=== PATIENT | male | born 1970 | race Caucasian/White ===

== ENCOUNTER 2023-10-25 16:12 | Emergency (ER) | payer OTHER, SELFPAY ==
[2023-10-25] VITALS (9 sets, daily range): BP systolic 142; BP diastolic 83; PULSE 100–122; RESP 18–32; TEMP 36.2; O2SAT 88–98
--- NOTE | ~2023-10-25 | XR_ITS ---
XR chest 1V portable 10/25/2023 16:44 Indication: Shortness of breath. Low oxygen saturations. Procedure: AP view of the chest Comparison: No prior studies for comparison. Findings: Heart size normal. The lungs are hyperinflated which is consistent with, but not diagnostic of chronic obstructive pulmonary disease. No focal pneumonia, edema or effusion. There is calcified granuloma left mid thorax. There is left basilar atelectasis/scarring. Impression: 1: No acute cardiopulmonary disease. Reviewed, dictated and finalized at location B. Impression: 1: No acute cardiopulmonary disease.
--- NOTE | 2023-10-25 16:25 | ECG_ITS ---
Test Date: 2023-10-25 16:35:56 Measurements Intervals [place] Rate: 116 P: 86 WI: 178 QRS: 196 QRSD: 96 T: 64 QT: 335 QTc: 466 Interpretive Statements SINUS TACHYCARDIA RIGHT AXIS DEVIATION INCOMPLETE RIGHT BUNDLE BRANCH BLOCK POOR R WAVE PROGRESSION BASELINE ARTIFACT- I, II, III, AVR, AVL, AVF, V1-V2, V4-V6 ABNORMAL ECG No previous ECG available for comparison Electronically Signed On 10-25-2023 18:28:08 CDT by Amol Healy D.O.
--- NOTE | 2023-10-25 16:33 | ED.SOB ---
HPI - SOB/Dyspnea General Chief Complaint: Shortness of Breath/Dyspnea Stated Complaint: sob, out of inhaler Time Seen by Provider: 10/25/23 16:25 History of Present Illness HPI Narrative: 52-year-old male history of COPD and asthma presents to the emergency room for evaluation of sudden onset of shortness of breath. With history of COPD asthma presents to the emergency room for sudden onset of some shortness of breath. Patient states that he is out of his albuterol nebulizer and IV to oral inhaler medications. States his last use was yesterday. Reports gradual onset of chest tightness shortness of breath. Patient is able to carry on a conversation and Be active without increased shortness of breath. Related Data Allergies Allergy/AdvReac Type Severity Reaction Status Date / Time No Known Allergies Allergy Verified 10/25/23 17:01 Review of Systems Review of Systems: ROS unremarkable except for noted in HPI Exam Narrative: GENERAL: Well-appearing, well-nourished, no physical limitations, and in no acute distress. HEAD: Normocephalic, atraumatic. EYES: Conjunctivae normal, PERRLA and EOMI. ENT: External nose normal, Nares clear, no rhinorrhea or epistaxis. Mucous membranes moist. Oropharynx without tonsillar hypertrophy exudate or other lesions. External ears normal, bilateral TMs normal bilaterally NECK: Supple. No meningeal signs. No adenopathy or masses. No carotid bruits or JVD CHEST: decreased breath sounds throughout, tachypneic HEART: tachycardia with regular rhythm. No murmur heard. Normal peripheral pulses. BACK: No CVA tenderness; No cervical/thoracic/lumbar tenderness, step-offs, bony abnormality; FROM EXTREMITIES: Normal range of motion. No edema. No clubbing or cyanosis SKIN: Warm, dry, no rash. No noted wounds NEURO: No focal deficits. Alert and oriented x3. MAEW. CN's II-XI intact bilaterally, normal gait PSYCH: Cooperative. Normal mood and affect. Course Vital Signs Vital signs: Vital Signs Temperature 36.2 C L 10/25/23 16:14 Pulse Rate 117 H 10/25/23 16:14 Respiratory Rate 24 H 10/25/23 16:14 Blood Pressure 142/83 H 10/25/23 16:14 Pulse Oximetry 94 10/25/23 16:14 Oxygen Delivery Room Air 10/25/23 16:14 Temperature 36.2 C L 10/25/23 16:14 Pulse Rate 114 H 10/25/23 16:58 Respiratory Rate 24 H 10/25/23 16:58 Blood Pressure 142/83 H 10/25/23 16:14 Pulse Oximetry 88 L 10/25/23 16:39 Oxygen Delivery Room Air 10/25/23 16:39 MDM - SOB/Dyspnea Lab Data 10/25/23 17:08 10/25/23 17:08 Labs: Lab Results 10/25/23 Range/Units 17:08 WBC 8.2 (4.5-10.0) K/mm3 RBC 5.37 (4.6-6.20) M/mm3 Hgb 16.1 (14.0-18.0) g/dL Hct 49.1 (42.0-52.0) % MCV 91.4 (80-100) fl MCH 30.0 (26-34) pg MCHC 32.8 (32-36) g/dl RDW 12.5 (11.5-14.5) % Plt Count 337 (150-375) k/mm3 MPV 9.8 (7.4-10.4) fl Immature Gran % (Auto) 0.7 H (0-0.5) % Neut % (Auto) 59.6 (45.5-73.1) % Lymph % (Auto) 25.9 (18.3-44.2) % Stevens % (Auto) 10.5 H (2.6-8.5) % Eos % (Auto) 2.6 (0-4.4) % Baso % (Auto) 0.7 (0.2-1.2) % Lymph # (Auto) 2.13 (0.9-3.2) K/mm3 Stevens # (Auto) 0.9 H (0.1-0.6) K/mm3 Eos # (Auto) 0.2 (0-0.3) K/mm3 Baso # (Auto) 0.1 (0.0-0.1) K/mm3 Abs Immat Gran (auto) 0.06 H (0.00-0.031) K/mm3 Absolute Neuts (auto) 4.9 (1.3-6.7) K/mm3 Absolute Nucleated RBC 0.000 (0.0-0.012) K/mm3 Nucleated RBC % 0.0 (0.0-0.2) % Sodium 137 (137-145) mmol/L Potassium 4.8 (3.4-5.0) mmol/L Chloride 94 L (98-107) mmol/L Carbon Dioxide 34 H (22-30) mmol/L Anion Gap 9 (4-12) mmol/L BUN 19 (9-20) mg/dL Creatinine 0.90 (0.7-1.3) mg/dL Estim Creat Clear Calc 113 ml/min Estimated GFR > 60 (59 - ) Glucose 255 H (65-110) mg/dL Calcium 9.2 (8.4-10.2) mg/dL Total Bilirubin 0.4 (0.2-1.3) mg/dL AST 27 (17-59) U/L ALT 25 (6-50) U/L Alkaline Phosphatase 126 (38-126) U/L Total Pr
[2023-10-25] MEDS: IPRATROPIUM 0.5 MG/ALBUTEROL SULFATE 2.5 MG AMPUL.NEB 3 ML INHALATION (16:44)
[2023-10-25] MEDS: dexAMETHasone SOD PHOS INJ 10 MG/ML 1 ML VIAL (17:01)
[2023-10-25 17:17] LABS: Basophils Absolute Auto 0.1 K/mm3 (0.0-0.1); Basophils Percent Auto 0.7 % (0.2-1.2); Eosinophils Absolute Auto 0.2 K/mm3 (0-0.3); Eosinophils Percent Auto 2.6 % (0-4.4); Hematocrit 49.1 % (42.0-52.0); Hemoglobin 16.1 g/dL (14.0-18.0); Immature Granulocyte Absolute 0.06 K/mm3 (0.00-0.031); Immature Granulocyte Percent A 0.7 % (0-0.5); Lymphocytes Absolute Auto 2.13 K/mm3 (0.9-3.2); Lymphocytes Percent Auto 25.9 % (18.3-44.2); Mean Corpuscular HGB Conc 32.8 g/dl (32-36); Mean Corpuscular Volume 91.4 fl (80-100); Mean Platelet Volume 9.8 fl (7.4-10.4); Monocytes Absolute Auto 0.9 K/mm3 (0.1-0.6); Monocytes Percent Auto 10.5 % (2.6-8.5); Neutrophils Absolute Auto 4.9 K/mm3 (1.3-6.7); Neutrophils Percent Auto 59.6 % (45.5-73.1); Platelet Count Result 337 k/mm3 (150-375); Red Blood Count 5.37 M/mm3 (4.6-6.20); Red Cell Distribution Width 12.5 % (11.5-14.5); White Blood Count 8.2 K/mm3 (4.5-10.0)
[2023-10-25 17:37] LABS: Alanine Aminotransferase 25 U/L (6-50); Alkaline Phosphatase 126 U/L (38-126); Anion Gap 9 mmol/L (4-12); Aspartate Amino Transferase 27 U/L (17-59); Bilirubin,Total 0.4 mg/dL (0.2-1.3); Blood Urea Nitrogen 19 mg/dL (9-20); Calcium 9.2 mg/dL (8.4-10.2); Carbon Dioxide 34 mmol/L (22-30); Chloride 94 mmol/L (98-107); Estimated CRCL calculation 113 ml/min; Estimated Glomerular Filt Rate > 60; Glucose 255 mg/dL (65-110); Potassium 4.8 mmol/L (3.4-5.0); Sodium 137 mmol/L (137-145)
== END 2023-10-25 17:43 | disposition home or self-care (01) ==
PROVIDERS: Emergency Medicine; Emergency Provider Nurse Practitioner Family
DX: J45.901 Unspecified asthma with (acute) exacerbation (principal); J44.89 Other specified chronic obstructive pulmonary disease; R00.0 Tachycardia, unspecified; I45.10 Unspecified right bundle-branch block
CPT/HCPCS: 36415; 71045; 80053; 85025; 93005; 94640; 96372; 99284; J1100

== ENCOUNTER 2023-11-07 15:49 | Inpatient (IN) | payer OTHER, SELFPAY ==
[2023-11-07] VITALS (17 sets, daily range): BP systolic 129–161; BP diastolic 70–100; PULSE 99–118; RESP 13–33; TEMP 36.1–36.9; O2SAT 94–100; BMI 39.0
--- NOTE | ~2023-11-07 | CT_ITS ---
EXAMINATION: CT diagnostic chest wo con DATE: 11/09/2023 17:57 INDICATION: COPD, lung nodule TECHNIQUE: Computed tomography (CT) of the chest was performed with 100 mL Omnipaque-350 intravenous contrast. Automated exposure control and iterative reconstruction technique were employed. The dose-l ength product was 733.65 mGy-cm. COMPARISON: X-ray chest 11/07/2023. FINDINGS: CHEST: Thoracic aorta: No significant dilation or calcification. Lung parenchyma and airways: Very mild scattered patchy groundglass opacities. Lingular scar. Calcifi ed left lower lobe granuloma. Thoracic inlet, axillae and chest wall: No thyroid or soft tissue mass. No axillary lymphadenopathy. Mediastinum: No mass or lymphadenopathy. Heart and pericardium: Normal heart size. No pericardial effusion. Coronary artery calcifications: Absent. Pleura: No effusion or mass. Upper abdomen: Left adrenal adenoma. Thoracic bones: No acute osseous finding in the chest. IMPRESSION: Very mild pattern of mosaic attenuation which can be seen with asthma, bronchitis obliterans, hyperse nsitivity pneumonitis, and chronic thromboembolic disease. Reviewed, dictated and finalized at location K. IMPRESSION: Very mild pattern of mosaic attenuation which can be seen with asthma, bronchit is obliterans, hypersensitivity pneumonitis, and chronic thromboembolic disease .
--- NOTE | ~2023-11-07 | XR_ITS ---
XR chest 1V portable 11/07/2023 16:51 Indication: Shortness of breath Procedure: AP portable chest Comparison: 10/25/2023 Findings: Heart size normal. Right lung clear. Calcified granuloma left mid thorax. No focal air spac e disease, pulmonary edema, pleural effusion or suspected pneumothorax. Impression: 1: No acute cardiopulmonary disease. Reviewed, dictated and finalized at location B. Impression: 1: No acute cardiopulmonary disease.
--- NOTE | 2023-11-07 15:57 | ECG_ITS ---
Test Date: 2023-11-07 16:05:23 Measurements Intervals [place] Rate: 116 P: 76 AL: 173 QRS: 144 QRSD: 98 T: 52 QT: 313 QTc: 435 Interpretive Statements SINUS TACHYCARDIA RIGHT AXIS DEVIATION INCOMPLETE RIGHT BUNDLE BRANCH BLOCK BORDERLINE R WAVE PROGRESSION, ANTERIOR LEADS BORDERLINE T WAVE ABNORMALITY- ANTERIOR LEADS BASELINE ARTIFACT- I, II, III, AVR, AVL, AVF, V2-V6 ABNORMAL ECG Compared to ECG 10/25/2023 16:35:56 NO SIGNIFICANT CHANGE Electronically Signed On 11-07-2023 16:56:23 CDT by Amol Healy D.O.
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
[2023-11-07] MEDS: ALBUTEROL SULFATE NEB 2.5 MG/3 ML INH 10 MG INHALATION ×2 (16:14→18:41)
[2023-11-07] MEDS: IPRATROPIUM BR 0.02% INH SOLN 0.5 MG/2.5 ML VIAL INHALATION ×2 (16:14→18:41)
[2023-11-07] MEDS: SODIUM CHLORIDE 0.9% IV 1,000 ML 999 ML IV CONT ×2 (16:15→18:34)
[2023-11-07] MEDS: methylPREDNISolone SOD SUCC 125 MG VIAL IV PUSH (16:15)
--- NOTE | 2023-11-07 16:18 | PC.NURSE ---
Pt tolerating resp treatment.
[2023-11-07 16:20] LABS: Basophils Absolute Auto 0.1 K/mm3 (0.0-0.1); Basophils Percent Auto 0.7 % (0.2-1.2); Eosinophils Absolute Auto 0.2 K/mm3 (0-0.3); Eosinophils Percent Auto 1.3 % (0-4.4); Hematocrit 50.1 % (42.0-52.0); Hemoglobin 15.1 g/dL (14.0-18.0); Immature Granulocyte Absolute 0.22 K/mm3 (0.00-0.031); Immature Granulocyte Percent A 1.7 % (0-0.5); Lymphocytes Absolute Auto 2.56 K/mm3 (0.9-3.2); Mean Corpuscular HGB Conc 30.1 g/dl (32-36); Mean Corpuscular Hemoglobin 28.8 pg (26-34); Mean Corpuscular Volume 95.6 fl (80-100); Mean Platelet Volume 9.4 fl (7.4-10.4); Monocytes Absolute Auto 1.1 K/mm3 (0.1-0.6); Monocytes Percent Auto 8.8 % (2.6-8.5); Neutrophils Absolute Auto 8.6 K/mm3 (1.3-6.7); Neutrophils Percent Auto 67.5 % (45.5-73.1); Platelet Count Result 240 k/mm3 (150-375); Red Blood Count 5.24 M/mm3 (4.6-6.20); Red Cell Distribution Width 12.8 % (11.5-14.5); White Blood Count 12.8 K/mm3 (4.5-10.0)
[2023-11-07 16:40] LABS: Alanine Aminotransferase 56 U/L (6-50); Albumin Level 4.4 g/dL (3.5-5.1); Alkaline Phosphatase 124 U/L (38-126); Aspartate Amino Transferase 46 U/L (17-59); Bilirubin,Total 0.4 mg/dL (0.2-1.3); Blood Urea Nitrogen 18 mg/dL (9-20); Calcium 8.7 mg/dL (8.4-10.2); Carbon Dioxide > 40 mmol/L (22-30); Chloride 91 mmol/L (98-107); Estimated CRCL calculation 126 ml/min; Estimated Glomerular Filt Rate > 60; Glucose 210 mg/dL (65-110); Potassium 5.3 mmol/L (3.4-5.0); Sodium 135 mmol/L (137-145)
[2023-11-07 17:11] LABS: Influenza A QL RT-PCR Negative (Negative); Influenza B QL RT-PCR Negative (Negative); RSV RNA, RT-PCR Negative (Negative); SARS-CoV-2 RNA PCR Negative (Negative)
[2023-11-07] MEDS: KETOROLAC 30 MG/ML VIAL (*BKC) IV PUSH (18:35)
--- NOTE | 2023-11-07 18:37 | PC.NURSE ---
Breath sounds unchanged. Pt medicated for headache
--- NOTE | 2023-11-07 18:42 | PC.NURSE ---
Pt found lying 1/2 off stretcher, oxygen off, Sa02 monitor off. Sa02 reapplied dropped 89% Pt repositioned wiht head of bed elevated. Instructed not to get up alone. Resp therapy notified of treatment & ABG.
[2023-11-07 18:49] LABS: Alveolar/Arterial O2 Gradient 30.6 mmHg; Base Excess ABG 1.6 mEq/l (+/-2.0); Fractional Inspired Oxygen 28 %; HCO3 ABG 32.4 mEq/l (22.0-26.0); Oxygen Content ABG 19.6 %vol (16.0-22.0); Oxygen Saturation ABG 89.9 % (95.0-100.0); Oxyhemoglobin 92.3 % THb (90.0-100.0); PO2 ABG 71.1 mmHg (80.0-100.0); PO2 FiO2 Ratio Arterial Blood 2.54 %; Total Hemoglobin 15.1 g/dL (12.0-18.0)
[2023-11-07 18:52] LABS: Device NASAL CANNULA; Modified Allen's Test Pass; Site Drawn RIGHT RADIAL; pH ABG 7.209 (7.350-7.450)
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
[2023-11-07 21:36] LABS: Glucose Point of Care 376 mg/dl (65-105)
[2023-11-07] MEDS: methylPREDNISolone SOD SUCC 125 MG VIAL 60 MG IV PUSH (21:43)
[2023-11-07] MEDS: INSULIN ASPART (*BKC) 100 UNITS/ML SUB-Q (21:43)
--- NOTE | 2023-11-07 21:51 | ADMGEN ---
This patient, Nohemy Lopez, was admitted to IMU Room 214-01. Patient/family oriented to hospital policies and general routines including ID bracelet, bed and alarms, visiting hours, pain management, procedures, bathroom and other care routines, personal items, smoking policy, room service/diet, and visiting hours. Information on how to activate the Rapid Response Team has been discussed. Patient/Family are encouraged to report perceived risks to care and to ask questions if they do not understand what they are told or what they should do.
[2023-11-07] MEDS: MIRTAZAPINE 15 MG TABLET PO (23:03)
[2023-11-07 23:47] LABS: Alveolar/Arterial O2 Gradient 56.9 mmHg; Base Excess ABG -2.6 mEq/l (+/-2.0); Fractional Inspired Oxygen 28 %; HCO3 ABG 25.7 mEq/l (22.0-26.0); Oxygen Content ABG 19.1 %vol (16.0-22.0); Oxyhemoglobin 93.7 % THb (90.0-100.0); PCO2 ABG 59.2 mmHg (35.0-45.0); PO2 ABG 72.9 mmHg (80.0-100.0); Total Hemoglobin 14.5 g/dL (12.0-18.0)
[2023-11-07 23:49] LABS: Device NON-INVASIVE VENT; Modified Allen's Test Pass; Site Drawn RIGHT RADIAL; pH ABG 7.255 (7.350-7.450)
[2023-11-07 23:50] LABS: Non-Invasive Expiratory Pressure 8 CMH2O; Non-Invasive Inspiratory Pressure 16 CMH2O; Non-Invasive Vent Rate 20 /MIN
[2023-11-08] VITALS (29 sets, daily range): BP systolic 110–142; BP diastolic 76–97; PULSE 96–122; RESP 12–28; TEMP 36.1–37.4; O2SAT 94–99
[2023-11-08] MEDS: ALBUTEROL SULFATE NEB 2.5 MG/3 ML INH 5 MG INHALATION ×4 (02:30→20:02)
[2023-11-08] MEDS: IPRATROPIUM BR 0.02% INH SOLN 0.5 MG/2.5 ML VIAL INHALATION ×4 (02:30→20:02)
[2023-11-08 05:00] LABS: Hematocrit 43.1 % (42.0-52.0); Hemoglobin 13.2 g/dL (14.0-18.0); Mean Corpuscular HGB Conc 30.6 g/dl (32-36); Mean Corpuscular Hemoglobin 29.1 pg (26-34); Mean Corpuscular Volume 94.9 fl (80-100); Mean Platelet Volume 9.5 fl (7.4-10.4); Platelet Count Result 194 k/mm3 (150-375); Red Blood Count 4.54 M/mm3 (4.6-6.20); Red Cell Distribution Width 12.8 % (11.5-14.5); White Blood Count 15.4 K/mm3 (4.5-10.0)
[2023-11-08 05:11] LABS: Anion Gap 8 mmol/L (4-12); Blood Urea Nitrogen 18 mg/dL (9-20); Calcium 7.9 mg/dL (8.4-10.2); Carbon Dioxide 33 mmol/L (22-30); Chloride 92 mmol/L (98-107); Estimated CRCL calculation 148 ml/min; Estimated Glomerular Filt Rate > 60; Glucose 314 mg/dL (65-110); Sodium 133 mmol/L (137-145)
[2023-11-08 05:18] LABS: Hemoglobin A1C 8.3 % (<5.7)
[2023-11-08 06:13] LABS: Alveolar/Arterial O2 Gradient 51.6 mmHg; Base Excess ABG 0.8 mEq/l (+/-2.0); Device NON-INVASIVE VENT; Fractional Inspired Oxygen 28 %; HCO3 ABG 28.2 mEq/l (22.0-26.0); Modified Allen's Test Pass; Oxygen Content ABG 18.6 %vol (16.0-22.0); Oxygen Saturation ABG 94.7 % (95.0-100.0); Oxyhemoglobin 95.2 % THb (90.0-100.0); PCO2 ABG 57.2 mmHg (35.0-45.0); PO2 ABG 80.5 mmHg (80.0-100.0); PO2 FiO2 Ratio Arterial Blood 2.88 %; Site Drawn RIGHT RADIAL; Total Hemoglobin 13.9 g/dL (12.0-18.0); pH ABG 7.311 (7.350-7.450)
[2023-11-08 06:14] LABS: Non-Invasive Expiratory Pressure 8 CMH2O; Non-Invasive Inspiratory Pressure 16 CMH2O; Non-Invasive Vent Rate 20 /MIN
[2023-11-08 06:21] LABS: Glucose Point of Care 314 mg/dl (65-105)
[2023-11-08] MEDS: methylPREDNISolone SOD SUCC 125 MG VIAL 60 MG IV PUSH ×3 (06:25→21:26)
[2023-11-08] MEDS: UMECLIDINIUM/VILANTEROL 62.5-25 MCG ELLIPTA 1 PUFF INHALATION (07:00)
[2023-11-08] MEDS: EMPAGLIFLOZIN 10 MG TABLET PO (08:41)
[2023-11-08] MEDS: metFORMIN HCL 500 MG TABLET PO ×2 (08:41→17:15)
[2023-11-08] MEDS: ENOXAPARIN 40 MG/0.4 ML SYRINGE SUB-Q (08:42)
[2023-11-08] MEDS: ACETAMINOPHEN 325 MG TABLET 650 MG PO (08:47)
[2023-11-08] MEDS: INSULIN ASPART (*BKC) 100 UNITS/ML SUB-Q ×4 (08:48→20:03)
[2023-11-08 08:51] LABS: Glucose Point of Care 302 mg/dl (65-105)
[2023-11-08 13:13] LABS: Glucose Point of Care 251 mg/dl (65-105)
[2023-11-08] MEDS: BISACODYL 5 MG TABLET EC PO (13:13)
--- NOTE | 2023-11-08 14:17 | PCRCNOTE ---
CARE COORD. CALLED IN REGARDS TO GETTING PT SET UP WITH BIPAP AT D/C. BASED ON DX AND ABGs, IT APPEARS WARRANTED, PT WILL NEED A APNEA LINK TONIGHT DONE ON 2L [place] WELL DOCUMENTATION STATING CPAP TRIED/FAILED/RULED OUT. SPOKE TO HOSPITALIST, AGREED TO ORDER AND COMPLETE THE APNEA LINK ON 2L, UNSURE IS HE COULD STATE PT HAS FAILED CPAP. REACHED OUT TO PT PCP, JORGE WRIGHT ASKING IF THEY HAD ANY INFO ON PT PAST CRF AND IF HE HAS ANY RESP. EQUIPMENT FROM DME CURRENTLY AT HOME THAT INSURANCE MAY BE PAYING FOR. WILL AWAIT APNEA LINK RESULTS AND POSSIBLE ESTABLISHED DME VIA [facility] OFFICE.
[2023-11-08 16:16] LABS: Glucose Point of Care 223 mg/dl (65-105)
--- NOTE | 2023-11-08 17:17 | PM.IMPN ---
Progress Note: A&P Assessment and Plan (1) Acute on chronic respiratory failure with hypoxia and hypercapnia: Code(s): J96.21 - Acute and chronic respiratory failure with hypoxia; J96.22 - Acute and chronic respiratory failure with hypercapnia Status: Acute (2) Anxiety: Code(s): F41.9 - Anxiety disorder, unspecified Status: Acute (3) Methamphetamine abuse: Code(s): F15.10 - Other stimulant abuse, uncomplicated Status: Acute (4) Type 2 diabetes mellitus with hyperglycemia, without long-term current use of insulin: Code(s): E11.65 - Type 2 diabetes mellitus with hyperglycemia Status: Acute (5) Hyperkalemia: Code(s): E87.5 - Hyperkalemia Status: Acute (6) COPD exacerbation: Code(s): J44.1 - Chronic obstructive pulmonary disease with (acute) exacerbation Status: Acute (7) Obstructive sleep apnea: Code(s): G47.33 - Obstructive sleep apnea (adult) (pediatric) Status: Acute Plan H&P via Nicole Alonso MD on 11/07/23 53-year-old homeless male with past medical history of methamphetamine abuse, obstructive sleep apnea, COPD and type 2 diabetes mellitus who presented to the ER from [place] due to shortness of breath that is unrelieved with inhalers and nebulizers. The patient reports that he has had chest not undergoing treatment for opiate abuse. He has had increasing shortness of breath and his oxygen saturations on arrival to the ER were 63% on room air. He denies any significant cough or congestion. He has not had any fevers or chills. He was having a severe headache which she reports usually occurs whenever his pCO2 becomes elevated. He admits that he has not been using his BiPAP. He denies any chest pain or palpitations. He has not had any recent ill contacts. He denies orthopnea or paroxysmal nocturnal dyspnea. His only complaint at the time of my evaluation is that he is hungry. When I arrived to the patient's bedside he was wearing the BiPAP but the BiPAP mask was work completely loose. The patient admits to having unhook the mask and the straps were twisted. Which he had a large leak of greater than 100. I did adjust the patient's BiPAP mask with improved leak down to the 20s and 30s. The patient was noted to be hyperglycemic in the ER but patient did not know his home medications were ventral able to get his home medications from the drug rehab facility staff to after multiple attempts. Patient does not usually check his blood sugars. He reports that he has been in drug rehab due to methamphetamine use. He has been in inpatient rehab since the 17 of October. He reports that his program is 28 days long. ---- Continue nebulizer treatments, Solu-Medrol. Continue to trend white count and check procalcitonin in the morning. Tonight will do ApneaLink on 2 L to attempt to try to get a BiPAP delivered to the patient prior to discharge. He does not tolerate being off BiPAP then it should be placed. ABG in the morning. Metformin and Jardiance have been continued. She elicit he is being held. Continue Accu-Cheks. HbA1c on admission 8.3% His ABG on presentation demonstrates respiratory acidosis with severe hypercapnia which is been partially chronically compensated by metabolic alkalosis. His hypercapnia has improved greatly with BiPAP 18/6. Do not think the patient should return to [place] without a noninvasive ventilator. He has umeclidium vilatnerol TAILMAN and a rescue inhaler. will add pulmicort on discharge. Full code. Lovenox. Subjective Date/time seen: 11/08/23 17:17 Interval history: No major acute overnight events. The patient believes his breathing has improved. He is anxious about getting back to chest not appear he reports he does not in fact have a noninvasive ventilator at home or in his possession at all he is also technically homeless and they are arranging housing for him [facility]. He has a
[2023-11-08 19:52] LABS: Glucose Point of Care 354 mg/dl (65-105)
[2023-11-08] MEDS: MIRTAZAPINE 15 MG TABLET PO (20:02)
[2023-11-08] MEDS: INSULIN GLARGINE (*BKC) 100 UNITS/ML 10 UNITS SUB-Q (20:03)
[2023-11-08] MEDS: polyethylene glycoL 3350 17 GM POWD.PACK PO (21:26)
[2023-11-09] VITALS (21 sets, daily range): BP systolic 118–148; BP diastolic 67–94; PULSE 86–118; RESP 16–24; TEMP 36.1–36.7; O2SAT 92–100
[2023-11-09 04:50] LABS: Basophils Percent Auto 0.2 % (0.2-1.2); Hematocrit 44.4 % (42.0-52.0); Hemoglobin 13.4 g/dL (14.0-18.0); Immature Granulocyte Absolute 0.25 K/mm3 (0.00-0.031); Immature Granulocyte Percent A 1.1 % (0-0.5); Lymphocytes Absolute Auto 1.27 K/mm3 (0.9-3.2); Lymphocytes Percent Auto 5.6 % (18.3-44.2); Mean Corpuscular HGB Conc 30.2 g/dl (32-36); Mean Corpuscular Hemoglobin 28.5 pg (26-34); Mean Corpuscular Volume 94.5 fl (80-100); Mean Platelet Volume 9.6 fl (7.4-10.4); Monocytes Percent Auto 4.6 % (2.6-8.5); Neutrophils Percent Auto 88.5 % (45.5-73.1); Platelet Count Result 212 k/mm3 (150-375); White Blood Count 22.6 K/mm3 (4.5-10.0)
[2023-11-09 05:04] LABS: Anion Gap 7 mmol/L (4-12); Blood Urea Nitrogen 26 mg/dL (9-20); Calcium 8.3 mg/dL (8.4-10.2); Carbon Dioxide 31 mmol/L (22-30); Chloride 96 mmol/L (98-107); Estimated CRCL calculation 166 ml/min; Estimated Glomerular Filt Rate > 60; Glucose 211 mg/dL (65-110); Magnesium 2.5 mg/dL (1.6-2.3); Potassium 4.5 mmol/L (3.4-5.0); Sodium 134 mmol/L (137-145)
[2023-11-09 05:32] LABS: Alveolar/Arterial O2 Gradient 52.5 mmHg; Base Excess ABG 6.2 mEq/l (+/-2.0); Carboxyhemoglobin 0.6 % THb (0-2.0); Fractional Inspired Oxygen 28 %; HCO3 ABG 33.3 mEq/l (22.0-26.0); Methemoglobin ABG 0.1 %THb (0-1.5); Oxygen Content ABG 18.6 %vol (16.0-22.0); Oxygen Saturation ABG 94.8 % (95.0-100.0); Oxyhemoglobin 95.1 % THb (90.0-100.0); PO2 ABG 77.5 mmHg (80.0-100.0); PO2 FiO2 Ratio Arterial Blood 2.77 %; Reduced Hemoglobin 4.2 %THb (0-5.0); Total Hemoglobin 13.9 g/dL (12.0-18.0)
[2023-11-09] MEDS: methylPREDNISolone SOD SUCC 125 MG VIAL 60 MG IV PUSH ×2 (05:32→13:25)
[2023-11-09 05:33] LABS: Device NASAL CANNULA; Modified Allen's Test Pass; Site Drawn RIGHT RADIAL
[2023-11-09 07:11] LABS: Glucose Point of Care 296 mg/dl (65-105)
[2023-11-09] MEDS: IPRATROPIUM BR 0.02% INH SOLN 0.5 MG/2.5 ML VIAL INHALATION ×2 (07:34→13:44)
[2023-11-09] MEDS: ALBUTEROL SULFATE NEB 2.5 MG/3 ML INH 5 MG INHALATION ×2 (07:34→13:44)
[2023-11-09] MEDS: ENOXAPARIN 40 MG/0.4 ML SYRINGE SUB-Q (08:50)
[2023-11-09] MEDS: INSULIN ASPART (*BKC) 100 UNITS/ML SUB-Q ×4 (08:50→20:12)
[2023-11-09] MEDS: metFORMIN HCL 500 MG TABLET PO ×2 (08:50→16:43)
[2023-11-09] MEDS: EMPAGLIFLOZIN 10 MG TABLET PO (08:50)
[2023-11-09 11:23] LABS: Glucose Point of Care 302 mg/dl (65-105)
[2023-11-09] MEDS: UMECLIDINIUM/VILANTEROL 62.5-25 MCG ELLIPTA 1 PUFF INHALATION (13:44)
[2023-11-09 16:27] LABS: Glucose Point of Care 294 mg/dl (65-105)
--- NOTE | 2023-11-09 16:51 | PM.CNPUL ---
Assessment and Plan Assessment and plan (1) COPD exacerbation: Code(s): J44.1 - Chronic obstructive pulmonary disease with (acute) exacerbation Status: Acute Assessment and Plan: patient with a 60 pack year tobacco use, quit in 2017, history of COPD diagnosed in 2017 with PFTs and required 2 L supplemental oxygen at that time. Patient has had 2 previous episodes of hypercarbic respiratory failure 1 in [place] and 1 in [place] and in [place] he was discharged with a home noninvasive ventilator. Patient does not know his settings. Patient wore this until he moved to the [facility]. He does have respiratory limitations at baseline. Patient presented to [place] emergency room with feelings of hypercarbic respiratory failure and blood gas on 2 L nasal cannula pH of 7.21/83/71. Patient was placed on BiPAP rate of 20 pressure 16/8 and 2 L nasal cannula with repeat blood gas 5 hours later at 7.26/50 9/73. patient had a chest x-ray with no acute disease. Patient was treated for COPD exacerbation with IV steroids, bronchodilators and admitted to the hospital. patient's serum bicarbonate was greater than 40 on admission. ABG this morning at 5:23 a.m. on 2 L nasal cannula overnight was 7.37/59/78. The patient has chronic hypercarbic respiratory failure from COPD and would benefit from noninvasive ventilation to prevent further hospitalizations and deterioration. 11/09/2023: Currently the patient is on room air with saturations 100%. He is in no respiratory distress. He says he is 85% back to his normal. He has no wheezing. white blood cell count 22.6, creatinine 0.6, serum bicarbonate 31, procalcitonin 0, ABG this morning at 5:23 a.m. on 2 L nasal cannula overnight was 7.37/59/78. Patient had an overnight oximetry on 2 L nasal cannula with recording duration 6 hours and 35 minutes. Average saturation 94%. Low saturation 81%. Time with saturation less than or equal to 88% was 75 minutes. AHI was 2.4. Plan: Patient has no wheezing currently. I will change his IV Solu-Medrol to p.o. prednisone 40 mg a day 1st dose on 11/10/2023. Today is day 3 total of steroids. I will discontinue his standing nebulized albuterol and ipratropium and continue him on inhaled Anoro Ellipta 62.5-25 at 1 puff q.day. patient has no phlegm production is there is no evidence of a bacterial infection with a procalcitonin of 0. I agree with no antibiotics at this time. Goal saturation 90-94%. Currently on room air. He may require supplemental oxygen with activity. I will check an alpha 1 anti trypsin genotype. I will check a CT scan of the chest to assess for bullous emphysema and his history of lung nodule. Discussed with Dr. Davila and early childhood education coordinator. (2) Acute on chronic respiratory failure with hypoxia and hypercapnia: Code(s): J96.21 - Acute and chronic respiratory failure with hypoxia; J96.22 - Acute and chronic respiratory failure with hypercapnia Status: Acute Assessment and Plan: Patient has had 2 previous episodes of hypercarbic respiratory failure 1 in [place] in 2021 and 1 in [place] in 2022 and in [place] he was discharged with a home noninvasive ventilator. Patient does not know his settings. The patient has chronic hypercarbic respiratory failure from COPD and would benefit from noninvasive ventilation to prevent further hospitalizations and deterioration. 11/09/23: Plan: I will initiate noninvasive ventilatory support and place him on BiPAP rate of 20, pressure 16/5, inspiratory time 0.85, rise of 2 and 4 L bleed in and check an overnight oximetry and ABG prior to removal. Currently the patient's plan is to be discharged to an assisted living facility and we will contact them on 11/10/2023 to ensure they can support a noninvasive ventilator. History of Present Illness History of Present Illness Consult date: 11/09/23 Chief complaint: COPD Exacerbation Narrative:
--- NOTE | 2023-11-09 18:02 | PM.IMPN ---
Progress Note: A&P Assessment and Plan (1) Acute on chronic respiratory failure with hypoxia and hypercapnia: Code(s): J96.21 - Acute and chronic respiratory failure with hypoxia; J96.22 - Acute and chronic respiratory failure with hypercapnia Status: Acute (2) Anxiety: Code(s): F41.9 - Anxiety disorder, unspecified Status: Acute (3) Methamphetamine abuse: Code(s): F15.10 - Other stimulant abuse, uncomplicated Status: Acute (4) Type 2 diabetes mellitus with hyperglycemia, without long-term current use of insulin: Code(s): E11.65 - Type 2 diabetes mellitus with hyperglycemia Status: Acute (5) Hyperkalemia: Code(s): E87.5 - Hyperkalemia Status: Acute (6) COPD exacerbation: Code(s): J44.1 - Chronic obstructive pulmonary disease with (acute) exacerbation Status: Acute (7) Obstructive sleep apnea: Code(s): G47.33 - Obstructive sleep apnea (adult) (pediatric) Status: Acute Plan H&P via Nicole Alonso MD on 11/07/23 53-year-old homeless male with past medical history of methamphetamine abuse, obstructive sleep apnea, COPD and type 2 diabetes mellitus who presented to the ER from [place] due to shortness of breath that is unrelieved with inhalers and nebulizers. The patient reports that he has had chest not undergoing treatment for opiate abuse. He has had increasing shortness of breath and his oxygen saturations on arrival to the ER were 63% on room air. He denies any significant cough or congestion. He has not had any fevers or chills. He was having a severe headache which she reports usually occurs whenever his pCO2 becomes elevated. He admits that he has not been using his BiPAP. He denies any chest pain or palpitations. He has not had any recent ill contacts. He denies orthopnea or paroxysmal nocturnal dyspnea. His only complaint at the time of my evaluation is that he is hungry. When I arrived to the patient's bedside he was wearing the BiPAP but the BiPAP mask was work completely loose. The patient admits to having unhook the mask and the straps were twisted. Which he had a large leak of greater than 100. I did adjust the patient's BiPAP mask with improved leak down to the 20s and 30s. The patient was noted to be hyperglycemic in the ER but patient did not know his home medications were ventral able to get his home medications from the drug rehab facility staff to after multiple attempts. Patient does not usually check his blood sugars. He reports that he has been in drug rehab due to methamphetamine use. He has been in inpatient rehab since the 17 of October. He reports that his program is 28 days long. ---- Ap[facility] reviewed. Patient currently on room air at rest. Discussion held with family day care provider and manager of radiology. The patient cannot go back to chest not as they are refusing. He is otherwise homeless and they are working on housing. Consult pulmonology to help titrate and set up this patient has noninvasive ventilator along with other will therapies related to chronic hypercapnic hypoxic respiratory failure. Pulmonology consultation is greatly appreciated. Full code. Lovenox. Full code. Lovenox. Subjective Date/time seen: 11/09/23 18:02 Interval history: No major acute overnight events. ApneaLink performed last night. Patient believes he is almost back to his baseline. Review of Systems Review of Systems: All systems reviewed & are unremarkable except as noted in HPI and below (Subjective) Exam Const: General: comfortable and no acute distress Eyes: Pupils: Equal, round and reactive pupils present Neck: Neck: supple Resp: Effort & Inspection: normal respiratory effort Other: Severely diminished lung sounds. No wheeze. Cardio: Rate: regular rate Rhythm: regular rhythm GI: GI Palp: Yes Soft to palpation and No Tenderness to palpation present (GI) Extrem: General: edema (Trace pitting
[2023-11-09] MEDS: hydrOXYzine pamoate 25 MG CAPSULE 50 MG PO (20:04)
[2023-11-09] MEDS: MIRTAZAPINE 15 MG TABLET PO (20:05)
[2023-11-09] MEDS: INSULIN GLARGINE (*BKC) 100 UNITS/ML 10 UNITS SUB-Q (20:11)
[2023-11-09 20:24] LABS: Glucose Point of Care 236 mg/dl (65-105)
--- NOTE | 2023-11-09 23:21 | PC.NURSE ---
Patient being transferred to [facility] via wheelchair in stable condition. RT notified for Apnea link. Report given to Kadie HADDAD. All belongings sent with patient.
[2023-11-10] VITALS (7 sets, daily range): BP systolic 132–141; BP diastolic 71–97; PULSE 70–102; RESP 16–30; TEMP 36.1–36.9; O2SAT 92–97
[2023-11-10 04:35] LABS: Alveolar/Arterial O2 Gradient 127.2 mmHg; Base Excess ABG 5.2 mEq/l (+/-2.0); Fractional Inspired Oxygen 36 %; HCO3 ABG 32.5 mEq/l (22.0-26.0); Oxygen Content ABG 18.5 %vol (16.0-22.0); Oxyhemoglobin 90.4 % THb (90.0-100.0); PCO2 ABG 58.9 mmHg (35.0-45.0); PO2 ABG 61.2 mmHg (80.0-100.0); Total Hemoglobin 14.6 g/dL (12.0-18.0); pH ABG 7.359 (7.350-7.450)
[2023-11-10 04:36] LABS: Device BIPAP; Modified Allen's Test Pass; Site Drawn RIGHT RADIAL
[2023-11-10 04:37] LABS: Inspiratory Pressure 16 cmH2O
[2023-11-10 04:39] LABS: Expiratory Pressure 5 cmH2O
[2023-11-10 07:06] LABS: Basophils Absolute Auto 0.1 K/mm3 (0.0-0.1); Basophils Percent Auto 0.3 % (0.2-1.2); Hemoglobin 14.4 g/dL (14.0-18.0); Immature Granulocyte Absolute 0.33 K/mm3 (0.00-0.031); Immature Granulocyte Percent A 1.4 % (0-0.5); Lymphocytes Absolute Auto 2.47 K/mm3 (0.9-3.2); Lymphocytes Percent Auto 10.7 % (18.3-44.2); Mean Corpuscular HGB Conc 30.6 g/dl (32-36); Mean Corpuscular Hemoglobin 28.5 pg (26-34); Mean Corpuscular Volume 93.1 fl (80-100); Mean Platelet Volume 9.4 fl (7.4-10.4); Monocytes Absolute Auto 1.7 K/mm3 (0.1-0.6); Monocytes Percent Auto 7.3 % (2.6-8.5); Neutrophils Absolute Auto 18.5 K/mm3 (1.3-6.7); Neutrophils Percent Auto 80.3 % (45.5-73.1); Platelet Count Result 280 k/mm3 (150-375); Red Blood Count 5.05 M/mm3 (4.6-6.20); Red Cell Distribution Width 13.5 % (11.5-14.5)
--- NOTE | 2023-11-10 07:07 | ECHO_ITS ---
Patient Info Name: Nohemy Lopez Age: 53 years : 1970 Gender: Male Ht: 71 in Wt: 280 lbs BSA: 2.57 m2 HR: 102 bpm BP: 141 / 71 mmHg Heart Rhythm: Sinus Rhythm Technical Quality: Good Exam Date: 11/10/2023 10:17 AM Exam Location: Echo Lab Patient Status: Inpatient Admit Date: 11/08/2023 Staff Ordering Physician: Bam Cazares MD [employer] Weaver: Comfort Palmer RDCS Attending Provider: Nicole Alonso DO Referring Physician: Sage BAY; Exam Type: CA echo doppler color flow Study Info Indications - wilson, assess vlaves, lv, rv, and pasp Complete two-dimensional, color flow and Doppler transthoracic echocardiogram is performed. Summary 1. Left ventricular chamber dimension is normal. 2. Left ventricular systolic function is normal, estimated at 60-65%. 3. The left ventricular diastolic function is grade I diastolic dysfunction. 4. Right ventricular chamber dimension is severely enlarged. 5. Right ventricular systolic function is normal. 6. Right atrial chamber dimension is mildly enlarged. 7. There is mild tricuspid valve regurgitation. 8. Estimated pulmonary arterial systolic pressure is 20 mmHg. Left Ventricle Left ventricular chamber dimension is normal. Left ventricular systolic function is normal, estimated at 60-65%. There is no increased left ventricular wall thickness. The left ventricular diastolic function is grade I diastolic dysfunction. Right Ventricle Right ventricular chamber dimension is severely enlarged. Right ventricular systolic function is normal. Left Atria Left atrial chamber dimension is normal. Right Atria Right atrial chamber dimension is mildly enlarged. Atrial Septum Intact interatrial septum visualized by color flow imaging. Aortic Valve The aortic valve is trileaflet. There is no aortic valve stenosis. There is no aortic valve regurgitation. Pulmonic Valve The pulmonic valve is not well visualized. Mitral Valve There is trace mitral valve regurgitation. Tricuspid Valve There is mild tricuspid valve regurgitation. Estimated pulmonary arterial systolic pressure is 20 mmHg. Pericardium/Pleural The pericardium appears epicardial fat pad. There is no pericardial effusion. Inferior Vena Cava Dilated inferior vena cava with >50% collapse upon inspiration consistent with elevated right atrial pressure, 8 mmHg. Aorta The aortic root size at the sinus of Valsalva is normal. Left Ventricular Outflow Tract Name Value Normal LVOT 2D LVOT Diameter 2.2 cm LVOT Doppler LVOT Peak Gradient 3 mmHg LVOT Mean Gradient 2 mmHg LVOT VTI 19 cm LVOT VTI/AV VTI Ratio 0.7 LVOT Stroke Volume 71 ml LVOT CO 6.0 l/min LVOT CI 2.3 l/min/m2 Pulmonic Valve Name Value Normal PV Doppler PV Pe
[2023-11-10 07:17] LABS: Anion Gap 8 mmol/L (4-12); Blood Urea Nitrogen 31 mg/dL (9-20); Calcium 8.6 mg/dL (8.4-10.2); Carbon Dioxide 34 mmol/L (22-30); Chloride 94 mmol/L (98-107); Estimated CRCL calculation 127 ml/min; Estimated Glomerular Filt Rate > 60; Glucose 222 mg/dL (65-110); Potassium 4.2 mmol/L (3.4-5.0); Sodium 136 mmol/L (137-145)
[2023-11-10] MEDS: metFORMIN HCL 500 MG TABLET PO ×2 (08:18→17:32)
[2023-11-10] MEDS: EMPAGLIFLOZIN 10 MG TABLET PO (08:19)
[2023-11-10] MEDS: ENOXAPARIN 40 MG/0.4 ML SYRINGE SUB-Q (08:19)
[2023-11-10] MEDS: predniSONE 20 MG TABLET 40 MG PO (08:19)
--- NOTE | 2023-11-10 08:24 | PM.PNPUL ---
Progress Note: A&P Assessment and Plan (1) COPD exacerbation: Code(s): J44.1 - Chronic obstructive pulmonary disease with (acute) exacerbation Status: Acute Assessment and Plan: patient with a 60 pack year tobacco use, quit in 2017, history of COPD diagnosed in 2017 with PFTs and required 2 L supplemental oxygen at that time. Patient has had 2 previous episodes of hypercarbic respiratory failure 1 in [place] and 1 in [place] and in [place] he was discharged with a home noninvasive ventilator. Patient does not know his settings. Patient wore this until he moved to the [facility]. He does have respiratory limitations at baseline. 11/07/23 admission White blood cell count was 12.8 with eosinophils 1.3% equal 166 per micro L, Patient presented to [place] emergency room with feelings of hypercarbic respiratory failure and blood gas on 2 L nasal cannula pH of 7.21/83/71. Patient was placed on BiPAP rate of 20 pressure 16/8 and 2 L nasal cannula with repeat blood gas 5 hours later at 7.26/50 9/73. patient had a chest x-ray with no acute disease. Patient was treated for COPD exacerbation with IV steroids, bronchodilators and admitted to the hospital. patient's serum bicarbonate was greater than 40 on admission. ABG this morning at 5:23 a.m. on 2 L nasal cannula overnight was 7.37/59/78. The patient has chronic hypercarbic respiratory failure from COPD and would benefit from noninvasive ventilation to prevent further hospitalizations and deterioration. 11/09/2023: Currently the patient is on room air with saturations 100%. He is in no respiratory distress. He says he is 85% back to his normal. He has no wheezing. white blood cell count 22.6, creatinine 0.6, serum bicarbonate 31, procalcitonin 0, ABG this morning at 5:23 a.m. on 2 L nasal cannula overnight was 7.37/59/78. Patient had an overnight oximetry on 2 L nasal cannula with recording duration 6 hours and 35 minutes. Average saturation 94%. Low saturation 81%. Time with saturation less than or equal to 88% was 75 minutes. AHI was 2.4. Plan: Patient has no wheezing currently. I will change his IV Solu-Medrol to p.o. prednisone 40 mg a day 1st dose on 11/10/2023. Today is day 3 total of steroids. I will discontinue his standing nebulized albuterol and ipratropium and continue him on inhaled Anoro Ellipta 62.5-25 at 1 puff q.day. patient has no phlegm production is there is no evidence of a bacterial infection with a procalcitonin of 0. I agree with no antibiotics at this time. Goal saturation 90-94%. Currently on room air. He may require supplemental oxygen with activity. I will check an alpha 1 anti trypsin genotype. I will check a CT scan of the chest to assess for bullous emphysema and his history of lung nodule. Discussed with Dr. Davila and technical project coordinator. Later in the day the patient had a CT scan of the chest demonstrating very minimal diffuse patchy infiltrates with no consolidation, no emphysema no interstitial lung disease. 11/10/23: Patient tells me he is 95% back to his baseline. He denies cough, phlegm or hemoptysis. He has no wheezing. He is afebrile. White blood cell count 23.0, creatinine 0.8. Patient is on room air with saturations 98%. Plan: Patient has no wheezing today. Continue prednisone 40 mg a day day 4 of steroids. Will discontinue after tomorrow's dose. Continue Anoro Ellipta 62.5-25 at 1 puff q.day. goal saturation 90-94% currently on room air. Discussed with Dr. Villegas, will follow with you. (2) Acute on chronic respiratory failure with hypoxia and hypercapnia: Code(s): J96.21 - Acute and chronic respiratory failure with hypoxia; J96.22 - Acute and chronic respiratory failure with hypercapnia Status: Acute Assessment and Plan: Patient has had 2 previous episodes of hypercarbic respiratory failure 1 in [place] in 2021 and 1 in [place] in 2022 and in [place] he was discharge
[2023-11-10 08:27] LABS: Glucose Point of Care 203 mg/dl (65-105)
[2023-11-10] MEDS: INSULIN ASPART (*BKC) 100 UNITS/ML SUB-Q ×3 (08:39→20:44)
[2023-11-10] MEDS: UMECLIDINIUM/VILANTEROL 62.5-25 MCG ELLIPTA 1 PUFF INHALATION (09:27)
[2023-11-10 09:40] LABS: NT Pro B Type Natriuretic Pept 451 pg/mL (19.9-100)
[2023-11-10 11:49] LABS: Glucose Point of Care 205 mg/dl (65-105)
--- NOTE | 2023-11-10 13:53 | PM.IMPN ---
Progress Note: A&P Assessment and Plan (1) Acute on chronic respiratory failure with hypoxia and hypercapnia: Code(s): J96.21 - Acute and chronic respiratory failure with hypoxia; J96.22 - Acute and chronic respiratory failure with hypercapnia Status: Acute (2) Anxiety: Code(s): F41.9 - Anxiety disorder, unspecified Status: Acute (3) Methamphetamine abuse: Code(s): F15.10 - Other stimulant abuse, uncomplicated Status: Acute (4) Type 2 diabetes mellitus with hyperglycemia, without long-term current use of insulin: Code(s): E11.65 - Type 2 diabetes mellitus with hyperglycemia Status: Acute (5) Hyperkalemia: Code(s): E87.5 - Hyperkalemia Status: Acute (6) COPD exacerbation: Code(s): J44.1 - Chronic obstructive pulmonary disease with (acute) exacerbation Status: Acute (7) Obstructive sleep apnea: Code(s): G47.33 - Obstructive sleep apnea (adult) (pediatric) Status: Acute Plan 53-year-old homeless male with past medical history of methamphetamine abuse, obstructive sleep apnea, COPD and type 2 diabetes mellitus who presented to the ER from [place] due to shortness of breath that is unrelieved with inhalers and nebulizers. The patient reports that he has had chest not undergoing treatment for opiate abuse. He has had increasing shortness of breath and his oxygen saturations on arrival to the ER were 63% on room air. He denies any significant cough or congestion. He has not had any fevers or chills. He was having a severe headache which she reports usually occurs whenever his pCO2 becomes elevated. He admits that he has not been using his BiPAP. He denies any chest pain or palpitations. He has not had any recent ill contacts. He denies orthopnea or paroxysmal nocturnal dyspnea. Patient was evaluated by Pulmonary. He was treated for COPD exacerbation. Solu-Medrol has been transition to prednisone. He is also on bronchodilators. No evidence of bacterial infection. CT scan of the chest reviewed which demonstrated patchy opacities with no definitive consolidation no emphysema or interstitial lung disease. Has chronic hypercarbic respiratory failure from COPD and will need non in the in due to recurrent admissions related to acute decompensation. Arrangement of BiPAP in process. The patient was noted to be hyperglycemic in the ER but patient did not know his home medications were ventral able to get his home medications from the drug rehab facility staff to after multiple attempts. Patient does not usually check his blood sugars. He reports that he has been in drug rehab due to methamphetamine use. He has been in inpatient rehab since the 17 of October. He reports that his program is 28 days long. Full code. Kayleigh. Subjective Date/time seen: 11/10/23 13:53 Interval history: Feels well. Used BiPAP at night. Discussed with Pulmonary. Labs reviewed. Review of Systems Review of Systems: All systems reviewed & are unremarkable except as noted in HPI and below (Subjective) Exam Narrative: GENERAL: Nontoxic, not in acute distress alert and oriented x3 HEAD: Normocephalic, atraumatic. EYES: PERRLA and EOMI. ENT: Nares clear, no rhinorrhea or epistaxis. Mucous membranes moist. NECK: Supple. CHEST: Diminished breath sounds bilaterally no wheezes or rhonchi HEART: Regular rate rhythm ABDOMEN: Soft, nontender, nondistended EXTREMITIES: Normal range of motion. Trace edema. SKIN: Warm, dry, no rash. NEURO: No focal deficits. Alert and oriented x3. PSYCH: Normal mood and affect. Objective Data Vital Signs Vital Signs: Vital Signs - 24 hr 11/09/23 14:02 11/09/23 14:00 11/09/23 15:59 Temperature 97.0 F L Pulse Rate 105 H 107 H 103 H Respiratory Rate 18 20 Blood Pressure 148/88 H Pulse Oximetry 95 Oxygen Delivery 11/09/23 20:00 11/09/23 20:00 11/09/23 23:30 Temperature 97.8 F 98.1 F Pulse Rate 105 H 110 H
[2023-11-10 16:59] LABS: Glucose Point of Care 165 mg/dl (65-105)
[2023-11-10] MEDS: INSULIN GLARGINE (*BKC) 100 UNITS/ML 10 UNITS SUB-Q (20:44)
[2023-11-10 21:02] LABS: Glucose Point of Care 246 mg/dl (65-105)
[2023-11-10] MEDS: hydrOXYzine pamoate 25 MG CAPSULE 50 MG PO (22:30)
[2023-11-10] MEDS: MIRTAZAPINE 15 MG TABLET PO (22:30)
[2023-11-11] VITALS (7 sets, daily range): BP systolic 132–151; BP diastolic 84–90; PULSE 79–105; RESP 18–26; TEMP 36.2–36.3; O2SAT 92–98
[2023-11-11 05:38] LABS: Base Excess ABG 3.5 mEq/l (+/-2.0); Fractional Inspired Oxygen 36 %; HCO3 ABG 30.9 mEq/l (22.0-26.0); Modified Allen's Test Pass; Oxygen Content ABG 20.4 %vol (16.0-22.0); Oxygen Saturation ABG 98.7 % (95.0-100.0); Oxyhemoglobin 98.2 % THb (90.0-100.0); PCO2 ABG 58.8 mmHg (35.0-45.0); PO2 ABG 145.5 mmHg (80.0-100.0); PO2 FiO2 Ratio Arterial Blood 4.04 %; Site Drawn RIGHT RADIAL; Total Hemoglobin 14.6 g/dL (12.0-18.0); pH ABG 7.339 (7.350-7.450)
[2023-11-11 05:39] LABS: Device NON-INVASIVE VENT
[2023-11-11 05:41] LABS: Non-Invasive Vent Rate 20 /MIN
[2023-11-11 05:42] LABS: Non-Invasive Expiratory Pressure 5 CMH2O
--- NOTE | 2023-11-11 08:05 | PM.PNPUL ---
Progress Note: A&P Assessment and Plan (1) COPD exacerbation: Code(s): J44.1 - Chronic obstructive pulmonary disease with (acute) exacerbation Status: Acute Assessment and Plan: patient with a 60 pack year tobacco use, quit in 2017, history of COPD diagnosed in 2017 with PFTs and required 2 L supplemental oxygen at that time. Patient has had 2 previous episodes of hypercarbic respiratory failure 1 in [place] and 1 in [place] and in [place] he was discharged with a home noninvasive ventilator. Patient does not know his settings. Patient wore this until he moved to the [facility]. He does have respiratory limitations at baseline. 11/07/23 admission White blood cell count was 12.8 with eosinophils 1.3% equal 166 per micro L. Echo 11/09/2024 with normal LV function 60-65%, grade 1 diastolic dysfunction, severely enlarged right ventricle with normal function, right atrium mildly enlarged with PASP of 20. Patient presented to [place] emergency room with feelings of hypercarbic respiratory failure and blood gas on 2 L nasal cannula pH of 7.21/83/71. Patient was placed on BiPAP rate of 20 pressure 16/8 and 2 L nasal cannula with repeat blood gas 5 hours later at 7.26/50 9/73. patient had a chest x-ray with no acute disease. Patient was treated for COPD exacerbation with IV steroids, bronchodilators and admitted to the hospital. patient's serum bicarbonate was greater than 40 on admission. ABG this morning at 5:23 a.m. on 2 L nasal cannula overnight was 7.37/59/78. The patient has chronic hypercarbic respiratory failure from COPD and would benefit from noninvasive ventilation to prevent further hospitalizations and deterioration. 11/09/2023: Currently the patient is on room air with saturations 100%. He is in no respiratory distress. He says he is 85% back to his normal. He has no wheezing. white blood cell count 22.6, creatinine 0.6, serum bicarbonate 31, procalcitonin 0, ABG this morning at 5:23 a.m. on 2 L nasal cannula overnight was 7.37/59/78. Patient had an overnight oximetry on 2 L nasal cannula with recording duration 6 hours and 35 minutes. Average saturation 94%. Low saturation 81%. Time with saturation less than or equal to 88% was 75 minutes. AHI was 2.4. Plan: Patient has no wheezing currently. I will change his IV Solu-Medrol to p.o. prednisone 40 mg a day 1st dose on 11/10/2023. Today is day 3 total of steroids. I will discontinue his standing nebulized albuterol and ipratropium and continue him on inhaled Anoro Ellipta 62.5-25 at 1 puff q.day. patient has no phlegm production is there is no evidence of a bacterial infection with a procalcitonin of 0. I agree with no antibiotics at this time. Goal saturation 90-94%. Currently on room air. He may require supplemental oxygen with activity. I will check an alpha 1 anti trypsin genotype. I will check a CT scan of the chest to assess for bullous emphysema and his history of lung nodule. Discussed with Dr. Davila and school community relations coordinator. Later in the day the patient had a CT scan of the chest demonstrating very minimal diffuse patchy infiltrates with no consolidation, no emphysema no interstitial lung disease. 11/10/23: Patient tells me he is 95% back to his baseline. He denies cough, phlegm or hemoptysis. He has no wheezing. He is afebrile. White blood cell count 23.0, creatinine 0.8. Patient is on room air with saturations 98%. Plan: Patient has no wheezing today. Continue prednisone 40 mg a day day 4 of steroids. Will discontinue after tomorrow's dose. Continue Anoro Ellipta 62.5-25 at 1 puff q.day. goal saturation 90-94% currently on room air. 11/11/23: Patient says he is breathing back at his baseline and says that he feels 95% back to normal. He has a persistent dry cough but denies wheezing, phlegm production or hemoptysis. Room air saturations are 95%. He took a shower yesterday with some dyspnea on exertion.
[2023-11-11] MEDS: predniSONE 20 MG TABLET 40 MG PO (08:15)
[2023-11-11] MEDS: metFORMIN HCL 500 MG TABLET PO ×2 (08:15→17:04)
[2023-11-11] MEDS: ENOXAPARIN 40 MG/0.4 ML SYRINGE SUB-Q (08:15)
[2023-11-11] MEDS: EMPAGLIFLOZIN 10 MG TABLET PO (08:15)
[2023-11-11 08:47] LABS: Glucose Point of Care 116 mg/dl (65-105)
[2023-11-11] MEDS: UMECLIDINIUM/VILANTEROL 62.5-25 MCG ELLIPTA 1 PUFF INHALATION (09:26)
[2023-11-11 12:13] LABS: Glucose Point of Care 236 mg/dl (65-105)
[2023-11-11] MEDS: INSULIN ASPART (*BKC) 100 UNITS/ML SUB-Q (12:21)
--- NOTE | 2023-11-11 12:41 | PM.IMPN ---
Progress Note: A&P Assessment and Plan (1) Acute on chronic respiratory failure with hypoxia and hypercapnia: Code(s): J96.21 - Acute and chronic respiratory failure with hypoxia; J96.22 - Acute and chronic respiratory failure with hypercapnia Status: Acute (2) Anxiety: Code(s): F41.9 - Anxiety disorder, unspecified Status: Acute (3) Methamphetamine abuse: Code(s): F15.10 - Other stimulant abuse, uncomplicated Status: Acute (4) Type 2 diabetes mellitus with hyperglycemia, without long-term current use of insulin: Code(s): E11.65 - Type 2 diabetes mellitus with hyperglycemia Status: Acute (5) Hyperkalemia: Code(s): E87.5 - Hyperkalemia Status: Acute (6) COPD exacerbation: Code(s): J44.1 - Chronic obstructive pulmonary disease with (acute) exacerbation Status: Acute (7) Obstructive sleep apnea: Code(s): G47.33 - Obstructive sleep apnea (adult) (pediatric) Status: Acute Plan 53-year-old homeless male with past medical history of methamphetamine abuse, obstructive sleep apnea, COPD and type 2 diabetes mellitus who presented to the ER from [place] due to shortness of breath that is unrelieved with inhalers and nebulizers. The patient reports that he has had chest not undergoing treatment for opiate abuse. He has had increasing shortness of breath and his oxygen saturations on arrival to the ER were 63% on room air. He denies any significant cough or congestion. He has not had any fevers or chills. He was having a severe headache which she reports usually occurs whenever his pCO2 becomes elevated. He admits that he has not been using his BiPAP. He denies any chest pain or palpitations. He has not had any recent ill contacts. He denies orthopnea or paroxysmal nocturnal dyspnea. Patient was evaluated by Pulmonary. He was treated for COPD exacerbation. Solu-Medrol has been transition to prednisone. He is also on bronchodilators. No evidence of bacterial infection. CT scan of the chest reviewed which demonstrated patchy opacities with no definitive consolidation no emphysema or interstitial lung disease. Has chronic hypercarbic respiratory failure from COPD and will need non in the in due to recurrent admissions related to acute decompensation. Arrangement of BiPAP in process. Home oxygen evaluation prior to discharge The patient was noted to be hyperglycemic in the ER but patient did not know his home medications were ventral able to get his home medications from the drug rehab facility staff to after multiple attempts. Patient does not usually check his blood sugars. He reports that he has been in drug rehab due to methamphetamine use. He has been in inpatient rehab since the 17 of October. He reports that his program is 28 days long. Full code. Kayleigh. Subjective Date/time seen: 11/11/23 12:41 Interval history: No overnight events. Discussed with Pulmonary. Awaiting approval of BiPAP at home. He is going to go to his aunt's house. He will need home oxygen evaluation prior to discharge back Review of Systems Review of Systems: All systems reviewed & are unremarkable except as noted in HPI and below (Subjective) Exam Narrative: GENERAL: Nontoxic, not in acute distress alert and oriented x3 HEAD: Normocephalic, atraumatic. EYES: PERRLA and EOMI. ENT: Nares clear, no rhinorrhea or epistaxis. Mucous membranes moist. NECK: Supple. CHEST: Diminished breath sounds bilaterally no wheezes or rhonchi HEART: Regular rate rhythm ABDOMEN: Soft, nontender, nondistended EXTREMITIES: Normal range of motion. Trace edema. SKIN: Warm, dry, no rash. NEURO: No focal deficits. Alert and oriented x3. PSYCH: Normal mood and affect. Objective Data Vital Signs Vital Signs: Vital Signs - 24 hr 11/10/23 16:00 11/10/23 19:27 11/10/23 20:00 Temperature 98.4 F 97 F L Pulse Rate 102 H 70 Respiratory Rate 18 16 Blood Pressure 132/97 H
--- NOTE | 2023-11-11 16:14 | PCRCNOTE ---
TRILOGY UNIT HAS BEEN APPROVED AND RT WITH LANCE MCCORMACK WILL BE IN TODAY TO SET UP PT ON HOME UNIT FOR TRIAL TONIGHT IN HOSPITAL PRIOR TO D/C TO ENSURE HE CAN TOLERATE. ANY QUESTIONS WITH THIS HOME SETUP CONTACT LANCE MCCORMACK AT
[2023-11-11 17:22] LABS: Glucose Point of Care 124 mg/dl (65-105)
[2023-11-11] MEDS: INSULIN GLARGINE (*BKC) 100 UNITS/ML 10 UNITS SUB-Q (21:52)
[2023-11-11] MEDS: hydrOXYzine pamoate 25 MG CAPSULE 50 MG PO (22:43)
[2023-11-11] MEDS: MIRTAZAPINE 15 MG TABLET PO (22:45)
[2023-11-12] VITALS (11 sets, daily range): BP systolic 117–142; BP diastolic 73–91; PULSE 66–102; RESP 16–24; TEMP 35.8–36.2; O2SAT 93–96
--- NOTE | 2023-11-12 01:17 | PCRCNOTE ---
Unable to do oximetry study on patient's home cpap due to the company not delivering him a home unit. Patient on hospital bipap.
--- NOTE | 2023-11-12 05:14 | PCRCNOTE ---
Morning abg not completed due to patient being on hospital bipap. Home unit was not delivered yesterday (11/11/23). Abg order specifically asked for it to be done on patient's home bipap.
[2023-11-12 06:37] LABS: Glucose Point of Care 197 mg/dl (65-105)
[2023-11-12] MEDS: UMECLIDINIUM/VILANTEROL 62.5-25 MCG ELLIPTA 1 PUFF INHALATION (07:54)
[2023-11-12 08:21] LABS: Glucose Point of Care 137 mg/dl (65-105)
[2023-11-12] MEDS: metFORMIN HCL 500 MG TABLET PO ×2 (09:00→17:08)
[2023-11-12] MEDS: EMPAGLIFLOZIN 10 MG TABLET PO (09:00)
[2023-11-12] MEDS: ENOXAPARIN 40 MG/0.4 ML SYRINGE SUB-Q (09:01)
[2023-11-12] MEDS: ALBUTEROL SULFATE NEB 2.5 MG/3 ML INH 5 MG INHALATION (09:11)
[2023-11-12 12:07] LABS: Glucose Point of Care 126 mg/dl (65-105)
--- NOTE | 2023-11-12 12:32 | PM.IMPN ---
Progress Note: A&P Assessment and Plan (1) Acute on chronic respiratory failure with hypoxia and hypercapnia: Code(s): J96.21 - Acute and chronic respiratory failure with hypoxia; J96.22 - Acute and chronic respiratory failure with hypercapnia Status: Acute (2) Anxiety: Code(s): F41.9 - Anxiety disorder, unspecified Status: Acute (3) Methamphetamine abuse: Code(s): F15.10 - Other stimulant abuse, uncomplicated Status: Acute (4) Type 2 diabetes mellitus with hyperglycemia, without long-term current use of insulin: Code(s): E11.65 - Type 2 diabetes mellitus with hyperglycemia Status: Acute (5) Hyperkalemia: Code(s): E87.5 - Hyperkalemia Status: Acute (6) COPD exacerbation: Code(s): J44.1 - Chronic obstructive pulmonary disease with (acute) exacerbation Status: Acute (7) Obstructive sleep apnea: Code(s): G47.33 - Obstructive sleep apnea (adult) (pediatric) Status: Acute Plan 53-year-old homeless male with past medical history of methamphetamine abuse, obstructive sleep apnea, COPD and type 2 diabetes mellitus who presented to the ER from [place] due to shortness of breath that is unrelieved with inhalers and nebulizers. The patient reports that he has had chest not undergoing treatment for opiate abuse. He has had increasing shortness of breath and his oxygen saturations on arrival to the ER were 63% on room air. He denies any significant cough or congestion. He has not had any fevers or chills. He was having a severe headache which she reports usually occurs whenever his pCO2 becomes elevated. He admits that he has not been using his BiPAP. He denies any chest pain or palpitations. He has not had any recent ill contacts. He denies orthopnea or paroxysmal nocturnal dyspnea. Patient was evaluated by Pulmonary. He was treated for COPD exacerbation. Solu-Medrol has been transition to prednisone. He is also on bronchodilators. No evidence of bacterial infection. CT scan of the chest reviewed which demonstrated patchy opacities with no definitive consolidation no emphysema or interstitial lung disease. Has chronic hypercarbic respiratory failure from COPD and will need non in the in due to recurrent admissions related to acute decompensation. Arrangement of BiPAP in process. Home oxygen evaluation prior to discharge The patient was noted to be hyperglycemic in the ER but patient did not know his home medications were ventral able to get his home medications from the drug rehab facility staff to after multiple attempts. Patient does not usually check his blood sugars. He reports that he has been in drug rehab due to methamphetamine use. He has been in inpatient rehab since the 17 of October. He reports that his program is 28 days long. Full code. Jorgex. Subjective Date/time seen: 11/12/23 12:32 Interval history: No overnight events. Awaiting BiPAP no new complaints. Review of Systems Review of Systems: All systems reviewed & are unremarkable except as noted in HPI and below (Subjective) Exam Narrative: GENERAL: Nontoxic, not in acute distress alert and oriented x3 HEAD: Normocephalic, atraumatic. EYES: PERRLA and EOMI. ENT: Nares clear, no rhinorrhea or epistaxis. Mucous membranes moist. NECK: Supple. CHEST: Diminished breath sounds bilaterally no wheezes or rhonchi HEART: Regular rate rhythm ABDOMEN: Soft, nontender, nondistended EXTREMITIES: Normal range of motion. Trace edema. SKIN: Warm, dry, no rash. NEURO: No focal deficits. Alert and oriented x3. PSYCH: Normal mood and affect. Objective Data Vital Signs Vital Signs: Vital Signs - 24 hr 11/11/23 14:23 11/11/23 20:00 11/11/23 22:31 Temperature 97.1 F L 97.3 F L Pulse Rate 105 H 102 H Respiratory Rate 20 20 Blood Pressure 151/90 H 132/87 Pulse Oximetry 94 98 Oxygen Delivery Room Air Fraction of Inspired Oxygen 11/11/23 23:30 11/12/23 02
[2023-11-12 16:51] LABS: Glucose Point of Care 232 mg/dl (65-105)
--- NOTE | 2023-11-12 17:07 | PC.NURSE ---
Home medications given to patient's aunt, Vita Horta, per patient request.
[2023-11-12] MEDS: WATER FOR IRRIGATION, STERILE 1,000 ML BOTTLE 1000 ML (17:08)
[2023-11-12] MEDS: INSULIN ASPART (*BKC) 100 UNITS/ML SUB-Q (17:09)
[2023-11-12] MEDS: INSULIN GLARGINE (*BKC) 100 UNITS/ML 10 UNITS SUB-Q (20:29)
[2023-11-12] MEDS: MIRTAZAPINE 15 MG TABLET PO (21:11)
[2023-11-13] VITALS (7 sets, daily range): BP systolic 118–151; BP diastolic 78–91; PULSE 79–99; RESP 18–24; TEMP 36.1–36.7; O2SAT 95–99
--- NOTE | 2023-11-13 04:27 | PCRCNOTE ---
ON 11/11 PT WORE HOME AVAPS APPROX 2HRS, TORE EVERYTHING OFF WOULD NOT WEAR FURTHER
[2023-11-13 05:30] LABS: Glucose Point of Care 181 mg/dl (65-105)
[2023-11-13] MEDS: UMECLIDINIUM/VILANTEROL 62.5-25 MCG ELLIPTA 1 PUFF INHALATION (07:53)
[2023-11-13 08:11] LABS: Glucose Point of Care 140 mg/dl (65-105)
[2023-11-13] MEDS: EMPAGLIFLOZIN 10 MG TABLET PO (09:06)
[2023-11-13] MEDS: metFORMIN HCL 500 MG TABLET PO ×2 (09:06→17:19)
[2023-11-13] MEDS: ENOXAPARIN 40 MG/0.4 ML SYRINGE SUB-Q (09:07)
[2023-11-13 11:31] LABS: Glucose Point of Care 203 mg/dl (65-105)
--- NOTE | 2023-11-13 11:44 | PM.IMPN ---
Progress Note: A&P Assessment and Plan (1) Acute on chronic respiratory failure with hypoxia and hypercapnia: Code(s): J96.21 - Acute and chronic respiratory failure with hypoxia; J96.22 - Acute and chronic respiratory failure with hypercapnia Status: Acute (2) Anxiety: Code(s): F41.9 - Anxiety disorder, unspecified Status: Acute (3) Methamphetamine abuse: Code(s): F15.10 - Other stimulant abuse, uncomplicated Status: Acute (4) Type 2 diabetes mellitus with hyperglycemia, without long-term current use of insulin: Code(s): E11.65 - Type 2 diabetes mellitus with hyperglycemia Status: Acute (5) Hyperkalemia: Code(s): E87.5 - Hyperkalemia Status: Acute (6) COPD exacerbation: Code(s): J44.1 - Chronic obstructive pulmonary disease with (acute) exacerbation Status: Acute (7) Obstructive sleep apnea: Code(s): G47.33 - Obstructive sleep apnea (adult) (pediatric) Status: Acute Plan 53-year-old homeless male with past medical history of methamphetamine abuse, obstructive sleep apnea, COPD and type 2 diabetes mellitus who presented to the ER from [place] due to shortness of breath that is unrelieved with inhalers and nebulizers. The patient reports that he has had chest not undergoing treatment for opiate abuse. He has had increasing shortness of breath and his oxygen saturations on arrival to the ER were 63% on room air. He denies any significant cough or congestion. He has not had any fevers or chills. He was having a severe headache which she reports usually occurs whenever his pCO2 becomes elevated. He admits that he has not been using his BiPAP. He denies any chest pain or palpitations. He has not had any recent ill contacts. He denies orthopnea or paroxysmal nocturnal dyspnea. Patient was evaluated by Pulmonary. He was treated for COPD exacerbation. Solu-Medrol has been transition to prednisone. He is also on bronchodilators. No evidence of bacterial infection. CT scan of the chest reviewed which demonstrated patchy opacities with no definitive consolidation no emphysema or interstitial lung disease. Has chronic hypercarbic respiratory failure from COPD and will need non in the in due to recurrent admissions related to acute decompensation. Arrangement of BiPAP in process. he received a machine yesterday and wore last night however was unable to tolerate. Will Attempt it again tonight. Home oxygen evaluation prior to discharge The patient was noted to be hyperglycemic in the ER but patient did not know his home medications were ventral able to get his home medications from the drug rehab facility staff to after multiple attempts. Patient does not usually check his blood sugars. He reports that he has been in drug rehab due to methamphetamine use. He has been in inpatient rehab since the 17 of October. He reports that his program is 28 days long. Full code. Lovenox. Subjective Date/time seen: 11/13/23 11:44 Interval history: he did not tolerate his new BiPAP machine and to get a night. [place] like the pressure was not coming enough. Denies any shortness of breath or Chest pain. Review of Systems Review of Systems: All systems reviewed & are unremarkable except as noted in HPI and below (Subjective) Exam Narrative: GENERAL: Nontoxic, not in acute distress alert and oriented x3 HEAD: Normocephalic, atraumatic. EYES: PERRLA and EOMI. ENT: Nares clear, no rhinorrhea or epistaxis. Mucous membranes moist. NECK: Supple. CHEST: Diminished breath sounds bilaterally no wheezes or rhonchi HEART: Regular rate rhythm ABDOMEN: Soft, nontender, nondistended EXTREMITIES: Normal range of motion. Trace edema. SKIN: Warm, dry, no rash. NEURO: No focal deficits. Alert and oriented x3. PSYCH: Normal mood and affect. Objective Data Vital Signs Vital Signs: Vital Signs - 24 hr 11/12/23 14:43 11/12/23 20:00 11/12/23 22:00 Temp
[2023-11-13] MEDS: INSULIN ASPART (*BKC) 100 UNITS/ML SUB-Q (12:53)
[2023-11-13 16:45] LABS: Glucose Point of Care 134 mg/dl (65-105)
[2023-11-13 21:32] LABS: Glucose Point of Care 125 mg/dl (65-105)
[2023-11-13] MEDS: INSULIN GLARGINE (*BKC) 100 UNITS/ML 10 UNITS SUB-Q (22:07)
[2023-11-13] MEDS: MIRTAZAPINE 15 MG TABLET PO (22:07)
[2023-11-14 05:45] LABS: Basophils Absolute Auto 0.1 K/mm3 (0.0-0.1); Basophils Percent Auto 0.9 % (0.2-1.2); Eosinophils Absolute Auto 0.2 K/mm3 (0-0.3); Eosinophils Percent Auto 2.2 % (0-4.4); Hematocrit 45.3 % (42.0-52.0); Hemoglobin 14.2 g/dL (14.0-18.0); Immature Granulocyte Absolute 0.33 K/mm3 (0.00-0.031); Immature Granulocyte Percent A 3.6 % (0-0.5); Lymphocytes Absolute Auto 2.81 K/mm3 (0.9-3.2); Lymphocytes Percent Auto 30.3 % (18.3-44.2); Mean Corpuscular HGB Conc 31.3 g/dl (32-36); Mean Corpuscular Hemoglobin 28.6 pg (26-34); Mean Corpuscular Volume 91.1 fl (80-100); Mean Platelet Volume 8.9 fl (7.4-10.4); Monocytes Absolute Auto 0.8 K/mm3 (0.1-0.6); Monocytes Percent Auto 8.7 % (2.6-8.5); Neutrophils Percent Auto 54.3 % (45.5-73.1); Platelet Count Result 226 k/mm3 (150-375); Red Blood Count 4.97 M/mm3 (4.6-6.20); Red Cell Distribution Width 13.2 % (11.5-14.5); White Blood Count 9.3 K/mm3 (4.5-10.0)
[2023-11-14 05:59] LABS: Alanine Aminotransferase 31 U/L (6-50); Albumin Level 3.3 g/dL (3.5-5.1); Alkaline Phosphatase 66 U/L (38-126); Anion Gap 3 mmol/L (4-12); Aspartate Amino Transferase 25 U/L (17-59); Bilirubin,Total 0.6 mg/dL (0.2-1.3); Blood Urea Nitrogen 18 mg/dL (9-20); Calcium 8.1 mg/dL (8.4-10.2); Carbon Dioxide 32 mmol/L (22-30); Chloride 98 mmol/L (98-107); Estimated CRCL calculation 126 ml/min; Estimated Glomerular Filt Rate > 60; Glucose 106 mg/dL (65-110); Magnesium 2.3 mg/dL (1.6-2.3); Potassium 3.9 mmol/L (3.4-5.0); Sodium 133 mmol/L (137-145)
[2023-11-14 06:00] VITALS: BP 138/93; PULSE 79; RESP 20; TEMP 36.4; O2SAT 98
[2023-11-14 07:39] VITALS: PULSE 82; RESP 20; O2SAT 96
[2023-11-14] MEDS: UMECLIDINIUM/VILANTEROL 62.5-25 MCG ELLIPTA 1 PUFF INHALATION (07:39)
[2023-11-14 08:00] LABS: Glucose Point of Care 119 mg/dl (65-105)
[2023-11-14] MEDS: ENOXAPARIN 40 MG/0.4 ML SYRINGE SUB-Q (08:45)
[2023-11-14] MEDS: EMPAGLIFLOZIN 10 MG TABLET PO (08:45)
[2023-11-14] MEDS: metFORMIN HCL 500 MG TABLET PO (08:45)
--- NOTE | 2023-11-14 10:18 | P.PNPL_ITS ---
Progress Note: A&P Assessment and Plan (1) COPD exacerbation: Code(s): J44.1 - Chronic obstructive pulmonary disease with (acute) exacerbation Status: Acute Assessment and Plan: patient with a 60 pack year tobacco use, quit in 2017, history of COPD diagnosed in 2017 with PFTs and required 2 L supplemental oxygen at that time. Patient has had 2 previous episodes of hypercarbic respiratory failure 1 in [facility] and 1 in [place] and [place] he was discharged with a home noninvasive ventilator. Patient does not know his settings. Patient wore this until he moved to the [facility]. He does have respiratory limitations at baseline. 11/07/23 admission White blood cell count was 12.8 with eosinophils 1.3% equal 166 per micro L. Echo 11/09/2024 with normal LV function 60-65%, grade 1 diastolic dysfunction, severely enlarged right ventricle with normal function, right atrium mildly enlarged with PASP of 20. Patient presented to [place] emergency room with feelings of hypercarbic respiratory failure and blood gas on 2 L nasal cannula pH of 7.21/83/71. Patient was placed on BiPAP rate of 20 pressure 16/8 and 2 L nasal cannula with repeat blood gas 5 hours later at 7.26/50 9/73. patient had a chest x-ray with no acute disease. Patient was treated for COPD exacerbation with IV steroids, bronchodilators and admitted to the hospital. patient's serum bicarbonate was greater than 40 on admission. ABG this morning at 5:23 a.m. on 2 L nasal cannula overnight was 7.37/59/78. The patient has chronic hypercarbic respiratory failure from COPD and would benefit from noninvasive ventilation to prevent further hospitalizations and deterioration. 11/09/2023: Currently the patient is on room air with saturations 100%. He is in no respiratory distress. He says he is 85% back to his normal. He has no wheezing. white blood cell count 22.6, creatinine 0.6, serum bicarbonate 31, procalcitonin 0, ABG this morning at 5:23 a.m. on 2 L nasal cannula overnight was 7.37/59/78. Patient had an overnight oximetry on 2 L nasal cannula with recording duration 6 hours and 35 minutes. Average saturation 94%. Low saturation 81%. Time with saturation less than or equal to 88% was 75 minutes. AHI was 2.4. Plan: Patient has no wheezing currently. I will change his IV Solu-Medrol to p.o. prednisone 40 mg a day 1st dose on 11/10/2023. Today is day 3 total of steroids. I will discontinue his standing nebulized albuterol and ipratropium and continue him on inhaled Anoro Ellipta 62.5-25 at 1 puff q.day. patient has no phlegm production is there is no evidence of a bacterial infection with a procalcitonin of 0. I agree with no antibiotics at this time. Goal saturation 90-94%. Currently on room air. He may require supplemental oxygen with activity. I will check an alpha 1 anti trypsin genotype. I will check a CT scan of the chest to assess for bullous emphysema and his history of lung nodule. Discussed with Dr. Davila and home health care respiratory therapist. Later in the day the patient had a CT scan of the chest demonstrating very minimal diffuse patchy infiltrates with no consolidation, no emphysema no interstitial lung disease. 11/10/23: Patient tells me he is 95% back to his baseline. He denies cough, phlegm or hemoptysis. He has no wheezing. He is afebrile. White blood cell count 23.0, creatinine 0.8. Patient is on room air with saturations 98%. Plan: Patient has no wheezing today. Continue prednisone 40 mg a day day 4 of steroids. Will discontinue after tomorrow's dose. Continue Anoro Ellipta 62.5-25 at 1 puff q.day. goal saturation 90-94% currently on room air. 11/11/23: Patient says he is breathing back at his base
[2023-11-14 11:20] VITALS: PULSE 101; O2SAT 94
[2023-11-14 11:35] VITALS: PULSE 115; O2SAT 91
--- NOTE | 2023-11-14 11:37 | PM.DS ---
DS: Admitting Diagnosis Discharge Date 11/14/2023 Admitting Diagnosis Shortness of breath DS: Discharge Diagnosis Discharge Diagnosis (1) Acute on chronic respiratory failure with hypoxia and hypercapnia: Code(s): J96.21 - Acute and chronic respiratory failure with hypoxia; J96.22 - Acute and chronic respiratory failure with hypercapnia Status: Acute (2) Anxiety: Code(s): F41.9 - Anxiety disorder, unspecified Status: Acute (3) Methamphetamine abuse: Code(s): F15.10 - Other stimulant abuse, uncomplicated Status: Acute (4) Type 2 diabetes mellitus with hyperglycemia, without long-term current use of insulin: Code(s): E11.65 - Type 2 diabetes mellitus with hyperglycemia Status: Acute (5) Hyperkalemia: Code(s): E87.5 - Hyperkalemia Status: Acute (6) COPD exacerbation: Code(s): J44.1 - Chronic obstructive pulmonary disease with (acute) exacerbation Status: Acute (7) Obstructive sleep apnea: Code(s): G47.33 - Obstructive sleep apnea (adult) (pediatric) Status: Acute DS: Summary Hospital Course Hospital Course: 53-year-old homeless male with past medical history of methamphetamine abuse, obstructive sleep apnea, COPD and type 2 diabetes mellitus who presented to the ER from [place] due to shortness of breath that is unrelieved with inhalers and nebulizers. The patient reports that he he had been at [place] undergoing treatment for opiate abuse. He has had increasing shortness of breath and his oxygen saturations on arrival to the ER were 63% on room air. He denies any significant cough or congestion. He has not had any fevers or chills. He was having a severe headache which she reports usually occurs whenever his pCO2 becomes elevated. He admits that he has not been using his BiPAP that was recommended in the past. He denies any chest pain or palpitations. He has not had any recent ill contacts. He denies orthopnea or paroxysmal nocturnal dyspnea. He was found to be in acute on chronic hypercapnic hypoxic respiratory failure. Most likely etiology being COPD exacerbation which was treated during the hospital stay. Patient was also evaluated by Pulmonary. Solu-Medrol has been transition to prednisone. He is also on bronchodilators. No evidence of bacterial infection. CT scan of the chest reviewed which demonstrated patchy opacities with no definitive consolidation no emphysema or interstitial lung disease. Has chronic hypercarbic respiratory failure from COPD and will need non in the in due to recurrent admissions related to acute decompensation. Arrangement of BiPAP was done while he was in the hospital. He also tried his home machine and he tolerated well. He will continue to follow-up with pulmonary as an outpatient basis. The patient was noted to be hyperglycemic in the ER but patient did not know his home medications were ventral able to get his home medications from the drug rehab facility staff to after multiple attempts. Patient does not usually check his blood sugars. He reports that he has been in drug rehab due to methamphetamine use. He has been in inpatient rehab since the 17 of October. He reports that his program is 28 days long. Full code. Lovenox. Time Spent with Patient Time attestation: Total time spent providing and/or coordinating discharge services: 45 minutes Exam Narrative: GENERAL: Nontoxic, not in acute distress alert and oriented x3 HEAD: Normocephalic, atraumatic. EYES: PERRLA and EOMI. ENT: Nares clear, no rhinorrhea or epistaxis. Mucous membranes moist. NECK: Supple. CHEST: Diminished breath sounds bilaterally no wheezes or rhonchi HEART: Regular rate rhythm ABDOMEN: Soft, nontender, nondistended EXTREMITIES: Normal range of motion. Trace edema. SKIN: Warm, dry, no rash. NEURO: No focal deficits. Alert and oriented x3. PSYCH: Normal mood and affect. DS: Data Data Completed and Pending Comp
[2023-11-14 11:40] VITALS: PULSE 102; O2SAT 93
[2023-11-14 11:49] LABS: Glucose Point of Care 123 mg/dl (65-105)
--- NOTE | 2023-11-14 13:31 | PCRCNOTE ---
HOME O2 EVAL COMPLETE. PATIENT DID NOT QUALIFY FOR O2 AT THIS TIME. RN NOTIFIED.
--- NOTE | 2023-11-15 17:34 | PC.NURSE ---
Patient was discharged but left his medication here. Patient called and confirmed his aunt Vita Horta can come to pick it up. Telephone consent for this confirmed with Angel Raman. She picked up the medication 11/15/23 [id number].
== END 2023-11-14 13:20 | disposition home or self-care (01) | DRG 140 ==
LOC: ANHED 16:33 → ANHIMU 20:35 → ANH3MED 11-09 23:38
PROVIDERS: General Practice; Internal Medicine Pulmonary Disease; Admitting Provider Internal Medicine; Emergency Provider Emergency Medicine; PCP Internal Medicine; Visit Provider Internal Medicine
DX: J44.1 Chronic obstructive pulmonary disease with (acute) exacerbation (principal); J96.21 Acute and chronic respiratory failure with hypoxia; J96.22 Acute and chronic respiratory failure with hypercapnia; E11.65 Type 2 diabetes mellitus with hyperglycemia; E87.5 Hyperkalemia; F15.10 Other stimulant abuse, uncomplicated; F11.10 Opioid abuse, uncomplicated; F41.9 Anxiety disorder, unspecified; G47.33 Obstructive sleep apnea (adult) (pediatric); Z79.85 Long-term (current) use of injectable non-insulin antidiabetic drugs; Z79.84 Long term (current) use of oral hypoglycemic drugs; Z20.822 Contact with and (suspected) exposure to COVID-19; Z87.891 Personal history of nicotine dependence; Z59.00 Homelessness unspecified; Z91.199 Patient's noncompliance with other medical treatment and regimen due to unspecified reason
CPT/HCPCS: 36415; 36600; 71045; 71250; 80048; 80053; 82104; 82375; 82805; 82948; 83036; 83050; 83735; 83880; 84145; 85025; 85027; 87637; 93005; 93306; 94002; 94003; 94618; 94640; 94762; 96361; 96372; 96374; 96375; 99285; A9270; G0378; J1650; J1815; J1885; J2919; J7030; J7512